=== PATIENT | male | born 1975 | race Caucasian/White ===

== ENCOUNTER 2018-01-21 16:53 | Emergency (ER) | payer MEDICARE, MEDICAID ==
[~2018-01-21] VITALS: Wt 117.9 kg
[~2018-01-21 16:53] MED LIST: BUSPAR; CARDIZEM; CLINDAMYCIN150 MG PO; GLYBURIDE; KEFLEX500 MG PO; SIMVASTATIN; VICODIN 5/500 505 MG PO
[2018-01-21] MEDS ORDERED: CORTISPORIN SUS10 ML OT (17:40)
== END 2018-01-21 17:46 | disposition home or self-care (01) ==
LOC: ED 16:53
DX: H60.91 Unspecified otitis externa, right ear (principal)

== ENCOUNTER 2025-05-01 11:37 | Emergency (ER) | payer MEDICARE ==
[~2025-05-01] VITALS: Ht 175.2 cm; Wt 103.0 kg
[~2025-05-01 11:37] MED LIST changes: +CORTISPORIN SUS10 ML OT
[2025-05-01 13:23] LABS: BASO # 0.1 10*3/uL (0.0-0.1); BASO % 1.4 % (0.0-1.0); EOS # 0.1 10*3/uL (0.0-0.4); EOS % 0.8 % (1.0-4.0); MEAN CELL VOLUME 84.7 fl (80.0-94.0); MEAN CORPUSCULAR HGB 29.5 pg (27.0-31.0); MEAN PLATELET VOLUME 9.0 fl (9.6-12.3); MONO # 0.4 10*3/uL (0.1-1.0); MONO % 5.6 % (3.0-9.0); NEUT # 5.0 10*3/uL (2.3-7.9); NEUT % 75.3 % (47.0-73.0); NUCLEATED RED BLOOD CELL 0.0 % (0.0-0.0); NUCLEATED RED BLOOD CELL 0.0 10*3/uL (0.0-0.0); PLATELET COUNT AUTOMATED 326 10*3/uL (130-400); RED CELL DISTRI WIDTH 13.1 % (0-14.5)
[2025-05-01 13:45] LABS: BUN 11 mg/dl (9-23)
[2025-05-01] MEDS ORDERED: ZESTRIL10 MG PO (14:04)
[2025-05-01] MEDS ORDERED: LISINOPRIL 10 MG TAB PO ONE (14:05)
== END 2025-05-01 14:20 | disposition home or self-care (01) ==
LOC: ED 11:37
PROVIDERS: Nurse Practitioner Family
DX: I10 Essential (primary) hypertension (principal); E11.65 Type 2 diabetes mellitus with hyperglycemia; F41.9 Anxiety disorder, unspecified; E78.00 Pure hypercholesterolemia, unspecified